=== PATIENT | male | born 1960 | race Caucasian/White ===

== ENCOUNTER 2017-07-21 00:09 | Inpatient (IN) | payer OTHER ==
[2017-07-21] VITALS (16 sets, daily range): BP systolic 118–163; BP diastolic 43–93; PULSE 84–104; RESP 15–34; TEMP 98.3–98.7; O2SAT 92–99
[~2017-07-21] VITALS: Ht 177.8 cm; Wt 112.0 kg
[~2017-07-21 00:09] MED LIST: MELO15TA2 PO; Z.0.NO CURRENT MEDS
[2017-07-21] MEDS ORDERED: IOHEXOL 350 MG/ML 10 ML VIAL (for RAD DIAG) IVCONTRAST ONE (00:10)
[2017-07-21] MEDS ORDERED: SODIUM CHLOR 0.9% 1000 ML INJ 1,000 ML IV SCH (00:17)
[2017-07-21] MEDS ORDERED: DIPHTH/TETANUS/ACEL PERTUSSIS (BOOSTER) 0.5 ML VIAL/PFS IM ONE (00:30)
[2017-07-21] MEDS ORDERED: ONDANSETRON HCL 4 MG/2 ML VIAL IV PUSH ONE (00:30)
[2017-07-21] MEDS ORDERED: SODIUM CHLORIDE 0.9% FLUSH 10 ML FLUSH IVF PRN (00:30)
[2017-07-21] MEDS ORDERED: MORPHINE SULFATE 4 MG/ML INJ IV PUSH ONE (00:30)
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
[2017-07-21 00:55] LABS: AUTOMATED NEUTROPHIL # 5.4 TH/MM3 (1.8-7.7); BASOPHIL # 0.1 TH/MM3 (0-0.2); BASOPHIL % 0.8 % (0.0-2.0); EOSINOPHIL # 0.2 TH/MM3 (0-0.4); EOSINOPHIL % 1.8 % (0.0-4.0); HEMATOCRIT 45.9 % (39.0-51.0); HEMO FLAGS DIFF FINAL; LYMPH % 38.2 % (9.0-44.0); MEAN CELL VOLUME 90.2 FL (80.0-100.0); MEAN CORPUSCULAR HEMOGLOBIN 31.9 PG (27.0-34.0); MEAN CORPUSCULAR HGB CONC 35.4 % (32.0-36.0); MONO % 7.8 % (0.0-8.0); NEUT % 51.4 % (16.0-70.0); PLATELET COUNT 183 TH/MM3 (150-450); RED BLOOD COUNT 5.08 MIL/MM3 (4.50-5.90); RED CELL DISTRIBUTION WIDTH 13.5 % (11.6-17.2); WHITE BLOOD COUNT 10.4 TH/MM3 (4.0-11.0)
[2017-07-21 01:02] LABS: APTT (PATIENT) 22.2 SEC (24.3-30.1); PROTHROMBIN TIME - PATIENT 10.5 SEC (9.8-11.6)
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
[2017-07-21 01:13] LABS: BICARBONATE 22.4 MEQ/L (21.0-32.0); POTASSIUM 3.6 MEQ/L (3.5-5.1)
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
[2017-07-21] MEDS ORDERED: HYDROmorphone HCL PF 0.5 MG/0.5 ML SYRINGE IV PUSH ONE (01:30)
[2017-07-21] MEDS ORDERED: KETOROLAC TROMETHAMINE 30 MG/ML (IVP) VIAL IV PUSH ONE (01:30)
[2017-07-21] MEDS ORDERED: HYDROmorphone HCL PCA 6 MG/30 ML IV SCH (01:45)
[2017-07-21] MEDS ORDERED: NALOXONE HCL 0.4 MG/ML AMP IV PUSH PRN (01:45)
[2017-07-21] MEDS ORDERED: MISCELLANEOUS NURSING INFORMATION XX SCH (01:45)
[2017-07-21] MEDS ORDERED: SENNOSIDES 8.6 MG TAB PO PRN (01:45)
[2017-07-21] MEDS ORDERED: CHLORHEXIDINE GLUCONATE 2 % 1 PACK (2 CLOTHS) TOP PRN (01:45)
[2017-07-21] MEDS ORDERED: BISACODYL 10 MG SUPP RECTAL PRN (01:45)
[2017-07-21] MEDS ORDERED: MAGNESIUM HYDROXIDE SUSP 30 ML CUP PO PRN (01:45)
[2017-07-21] MEDS ORDERED: LACTULOSE SYRUP 20 GM/30 ML CUP PO PRN (01:45)
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
[2017-07-21] MEDS: SODIUM CHLOR 0.9% 1000 ML INJ 1,000 ML IV SCH ×2 (03:00→14:23)
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
[2017-07-21] MEDS: CHLORHEXIDINE GLUCONATE 2 % 1 PACK (2 CLOTHS) TOP SCH (04:00)
[2017-07-21] MEDS: KETOROLAC TROMETHAMINE 30 MG/ML (IVP) VIAL IV PUSH SCH ×3 (04:37→19:37)
[2017-07-21] MEDS: METHOCARBAMOL 500 MG TAB PO SCH ×3 (04:37→23:02)
[2017-07-21] MEDS: PCA - TOTAL MG DILAUDID DELIVERED PER SHIFT OTHER SCH ×2 (05:04→22:00)
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
[2017-07-21] MEDS: DOCUSATE SODIUM 50 MG/SENNA 8.6 MG TAB PO SCH ×2 (09:00→23:02)
[2017-07-21] MEDS: POLYETHYLENE GLYCOL 17 GM PKG PO SCH (09:00)
[2017-07-21] MEDS ORDERED: DOCUSATE SODIUM 50 MG/SENNA 8.6 MG TAB PO SCH (09:00)
[2017-07-21] MEDS ORDERED: MIDAZOLAM HCL 5 MG/ML VIAL (1 ML) IV PUSH ONE (09:45)
[2017-07-21] MEDS ORDERED: fentaNYL CITRATE 250 MCG/5 ML AMP IV PUSH ONE (09:45)
[2017-07-21] MEDS ORDERED: LIDOCAINE HCL 1% 50 ML VIAL INFIL ONE (10:00)
--- NOTE | 2017-07-21 11:02 | RADRPT ---
EXAM DATE/TIME: 07/21/2017 10:15 [facility] COMPARISON: CHEST SINGLE AP, July 21, 2017, 4:59. INDICATIONS : Post chest tube placement. MEDICAL HISTORY : None. SURGICAL HISTORY : None. ENCOUNTER: Subsequent ACUITY: 1 day PAIN SCORE: Non-responsive. LOCATION: Bilateral chest FINDINGS: Interval placement of chest tube in the lower right chest with the tip of the tube projected near the midline. There has been reexpansion of the right lung no residual pneumothorax seen. Displaced fra ctures of the posterior right 3rd and 4th ribs. Patchy areas of opacity in the left infrahilar regio n may represent developing infiltrate. Both hemidiaphragms are well delineated. The heart is stable in size. CONCLUSION: No placement of right lower chest drainage tube with reexpansion of the right lung. Sd Canales MD on July 21, 2017 at 10:59 Board Certified Radiologist. This report was verified electronically.
[2017-07-21] MEDS: RESP: ALBUTEROL 2.5 MG/IPRATROPIUM 0.5 MG NEB (SCH) NEB ×3 (12:33→19:52)
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
--- NOTE | 2017-07-21 12:49 | PD.OP ---
Operative Report Right Pneumothorax Postoperative Diagnosis: Right Pneumothorax Procedure: Right CT thoracostomy Anesthesia: moderate sedation-by Oil Winterizer Surgeon: Rhonda Duron Whale Trainer(s): none Operation and Findings: Right chest was sterilely prepped and draped.A total of 20 cc lidocaine was injected-mid axillary line 5 ICR level.Transverse incision was performed to superior margin of rib with also blunt dissection.At 5 ICR superior margin of rib pleural space entered-large amount of air mccray encountered.CT secured with 0 -silk.CXR shows good position intrapleural-withdrawn for 2 cm towards right chest and resuttured. Rhonda Duron MD Jul 21, 2017 12:49
[2017-07-21] MEDS: MULTIVITAMIN INJ 10 ML, THIAMINE INJ 100 MG, FOLIC ACID INJ 1 MG in SODIUM CHLORID 0.9%... IV SCH (14:13)
[2017-07-21 18:24] LABS: BICARBONATE 22.9 MEQ/L (21.0-32.0); POTASSIUM 4.6 MEQ/L (3.5-5.1)
[2017-07-21] MEDS: REMOVE OLD LIDOCAINE PATCH T-DERMAL SCH (21:00)
[2017-07-22] VITALS (8 sets, daily range): BP systolic 134–171; BP diastolic 67–85; PULSE 75–104; RESP 13–20; TEMP 98–98.6; O2SAT 92–95
[2017-07-22] MEDS: KETOROLAC TROMETHAMINE 30 MG/ML (IVP) VIAL IV PUSH SCH ×5 (00:08→23:53)
[2017-07-22] MEDS: SODIUM CHLOR 0.9% 1000 ML INJ 1,000 ML IV SCH ×2 (01:21→07:48)
[2017-07-22] MEDS: CHLORHEXIDINE GLUCONATE 2 % 1 PACK (2 CLOTHS) TOP SCH (04:00)
[2017-07-22 04:47] LABS: AUTOMATED NEUTROPHIL # 5.8 TH/MM3 (1.8-7.7); BASOPHIL % 0.5 % (0.0-2.0); EOSINOPHIL # 0.1 TH/MM3 (0-0.4); EOSINOPHIL % 1.4 % (0.0-4.0); HEMATOCRIT 38.6 % (39.0-51.0); HEMO FLAGS DIFF FINAL; LYMPH % 19.6 % (9.0-44.0); LYMPHOCYTE # 1.6 TH/MM3 (1.0-4.8); MEAN CELL VOLUME 91.6 FL (80.0-100.0); MEAN CORPUSCULAR HEMOGLOBIN 31.4 PG (27.0-34.0); MEAN CORPUSCULAR HGB CONC 34.3 % (32.0-36.0); MONO % 9.6 % (0.0-8.0); NEUT % 68.9 % (16.0-70.0); PLATELET COUNT 124 TH/MM3 (150-450); RED BLOOD COUNT 4.22 MIL/MM3 (4.50-5.90); RED CELL DISTRIBUTION WIDTH 13.9 % (11.6-17.2); WHITE BLOOD COUNT 8.4 TH/MM3 (4.0-11.0)
[2017-07-22 05:00] LABS: BICARBONATE 23.6 MEQ/L (21.0-32.0); POTASSIUM 4.1 MEQ/L (3.5-5.1)
--- NOTE | 2017-07-22 05:48 | RADRPT ---
EXAM DATE/TIME: 07/22/2017 04:30 [facility] COMPARISON: CHEST SINGLE AP, July 21, 2017, 10:15. INDICATIONS : Short of breath. MEDICAL HISTORY : None. SURGICAL HISTORY : None. ENCOUNTER: Subsequent ACUITY: 2 days PAIN SCORE: 0/10 LOCATION: Bilateral chest FINDINGS: The heart size is normal. There is increased density at the right base. Right rib fractures are seen. There is a mild amount of pleural or extrapleural fluid seen over the right upper lung. Subcutaneous air is seen on the right lateral chest. There is a chest tube at the right base. A pneumothorax is n ot seen. CONCLUSION: 1. Right base atelectasis or contusion. 2. Right rib fractures. 3. Right chest tube without a pneumothorax. Bulmaro Harrison MD on July 22, 2017 at 5:45 Board Certified Radiologist. This report was verified electronically.
[2017-07-22] MEDS: PCA - TOTAL MG DILAUDID DELIVERED PER SHIFT OTHER SCH (06:00)
[2017-07-22] MEDS: METHOCARBAMOL 500 MG TAB PO SCH ×3 (06:27→20:16)
[2017-07-22] MEDS ORDERED: ENOXAPARIN SODIUM 30 MG/0.3 ML SYRINGE SQ SCH (07:00)
[2017-07-22] MEDS: LIDOCAINE HCL 5% PATCH T-DERMAL SCH ×2 (08:23→09:00)
[2017-07-22] MEDS: DOCUSATE SODIUM 50 MG/SENNA 8.6 MG TAB PO SCH ×2 (08:24→20:16)
[2017-07-22] MEDS: POLYETHYLENE GLYCOL 17 GM PKG PO SCH (08:24)
[2017-07-22] MEDS: RESP: ALBUTEROL 2.5 MG/IPRATROPIUM 0.5 MG NEB (SCH) NEB ×2 (08:45→12:36)
[2017-07-22] MEDS: MULTIVITAMIN INJ 10 ML, THIAMINE INJ 100 MG, FOLIC ACID INJ 1 MG in SODIUM CHLORID 0.9%... IV SCH (09:00)
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
[2017-07-22] MEDS ORDERED: ACETAMINOPHEN/HYDROcodone 325 MG/5 MG TAB PO PRN (12:30)
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
[2017-07-22] MEDS: ACETAMINOPHEN/HYDROcodone 325 MG/10 MG TAB PO PRN ×2 (19:01→23:54)
[2017-07-22] MEDS: MORPHINE SULFATE 4 MG/ML INJ IV PUSH PRN (20:15)
[2017-07-22] MEDS: REMOVE OLD LIDOCAINE PATCH T-DERMAL SCH (20:21)
[2017-07-22] MEDS ORDERED: PERI PO (21:07)
[2017-07-22] MEDS ORDERED: MAGN30S PO (21:07)
--- NOTE | 2017-07-22 21:12 | HHI.FF ---
Face to Face Verification Diagnosis: (1) Right rib fracture (2) Pulmonary contusion (3) Pneumothorax Physical Therapy Order: Evaluate and Treat, Improve ambulation, Strength and gait training Home Health Nursing Order: Medical education Signs/symptoms of disease process Medication education-adverse effect Nursing assessment with vital signs I have seen patient Mir Garay on 07/22/17. My clinical findings support the need for the requested home health care services because: Ltd mobility - disease progression Deconditioned w/ increased weakness Limited ability to care for self High risk of falls I certify that my clinical findings support that this patient is homebound because: Post-op weakness Unsteady gait/balance Unsafe to leave home unassisted Unable to use public transportation Claudia Garza Jul 22, 2017 21:12
[2017-07-23] VITALS (12 sets, daily range): BP systolic 123–141; BP diastolic 58–82; PULSE 67–85; RESP 18–22; TEMP 97.7–98.9; O2SAT 92–98
[2017-07-23] MEDS: CHLORHEXIDINE GLUCONATE 2 % 1 PACK (2 CLOTHS) TOP SCH (04:00)
[2017-07-23] MEDS: METHOCARBAMOL 500 MG TAB PO SCH ×3 (05:20→20:47)
[2017-07-23] MEDS: ACETAMINOPHEN/HYDROcodone 325 MG/10 MG TAB PO PRN ×4 (05:20→20:47)
--- NOTE | 2017-07-23 06:31 | RADRPT ---
EXAM DATE/TIME: 07/23/2017 05:42 [facility] COMPARISON: CHEST SINGLE AP, July 21, 2017, 4:59. CHEST SINGLE AP, July 21, 2017, 10:15. CHEST SINGLE A P, July 22, 2017, 4:30. INDICATIONS : Short of breath, evaluate right side pneumothorax and chest tube MEDICAL HISTORY : pneumothorax, right rib fractures, pulmonary contusion SURGICAL HISTORY : right side chest tube ENCOUNTER: Subsequent ACUITY: 4 - 6 days PAIN SCORE: 6/10 LOCATION: Right chest FINDINGS: There is a right-sided chest tube in place. There is a small right pneumothorax seen over the apex me asuring up to 1.5 cm in thickness over the right apex. In retrospect, this appears present on prior c hest x-ray and does not appear significantly changed. There is increased density at the right base. S hift of the heart and mediastinal structures is not seen. There is subcutaneous emphysema seen in the right chest. The left lung is clear. Right rib fractures are present. CONCLUSION: Persistent small pneumothorax at the right apex with a right-sided chest tube. Bulmaro Harrison MD on July 23, 2017 at 6:26 Board Certified Radiologist. This report was verified electronically.
[2017-07-23] MEDS: RESP: ALBUTEROL 2.5 MG/IPRATROPIUM 0.5 MG NEB (SCH) NEB ×4 (08:16→20:00)
[2017-07-23] MEDS: LACTULOSE SYRUP 20 GM/30 ML CUP PO SCH ×2 (09:00→09:36)
[2017-07-23] MEDS: POLYETHYLENE GLYCOL 17 GM PKG PO SCH (09:36)
[2017-07-23] MEDS: DOCUSATE SODIUM 50 MG/SENNA 8.6 MG TAB PO SCH ×2 (09:38→20:47)
[2017-07-23] MEDS: MAGNESIUM HYDROXIDE SUSP 30 ML CUP PO SCH ×2 (09:38→19:00)
[2017-07-23] MEDS: ENOXAPARIN SODIUM 40 MG/0.4 ML SYRINGE SQ SCH (09:40)
[2017-07-23] MEDS: LIDOCAINE HCL 5% PATCH T-DERMAL SCH (09:41)
[2017-07-23] MEDS: MULTIVITAMIN INJ 10 ML, THIAMINE INJ 100 MG, FOLIC ACID INJ 1 MG in SODIUM CHLORID 0.9%... IV SCH (09:55)
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
[2017-07-23] MEDS: MORPHINE SULFATE 4 MG/ML INJ IV PUSH PRN ×2 (14:54→22:07)
[2017-07-23] MEDS: REMOVE OLD LIDOCAINE PATCH T-DERMAL SCH (20:47)
[2017-07-24] VITALS (9 sets, daily range): BP systolic 134–164; BP diastolic 74–91; PULSE 72–85; RESP 18–22; TEMP 97.3–98.3; O2SAT 91–97
[2017-07-24] MEDS: ACETAMINOPHEN/HYDROcodone 325 MG/10 MG TAB PO PRN ×2 (00:41→04:35)
[2017-07-24 04:49] LABS: AUTOMATED NEUTROPHIL # 4.6 TH/MM3 (1.8-7.7); BASOPHIL % 0.5 % (0.0-2.0); EOSINOPHIL # 0.2 TH/MM3 (0-0.4); EOSINOPHIL % 3.1 % (0.0-4.0); HEMATOCRIT 35.7 % (39.0-51.0); HEMO FLAGS DIFF FINAL; LYMPH % 22.2 % (9.0-44.0); LYMPHOCYTE # 1.6 TH/MM3 (1.0-4.8); MEAN CELL VOLUME 90.4 FL (80.0-100.0); MEAN CORPUSCULAR HGB CONC 34.2 % (32.0-36.0); MONO % 7.5 % (0.0-8.0); NEUT % 66.7 % (16.0-70.0); PLATELET COUNT 133 TH/MM3 (150-450); RED BLOOD COUNT 3.95 MIL/MM3 (4.50-5.90); RED CELL DISTRIBUTION WIDTH 14.1 % (11.6-17.2)
[2017-07-24 05:11] LABS: BICARBONATE 27.3 MEQ/L (21.0-32.0); POTASSIUM 4.2 MEQ/L (3.5-5.1)
[2017-07-24] MEDS: METHOCARBAMOL 500 MG TAB PO SCH ×3 (06:16→20:24)
[2017-07-24] MEDS: MAGNESIUM HYDROXIDE SUSP 30 ML CUP PO SCH ×2 (06:16→20:20)
--- NOTE | 2017-07-24 06:59 | RADRPT ---
EXAM DATE/TIME: 07/24/2017 06:09 [facility] COMPARISON: CHEST SINGLE AP, July 23, 2017, 5:42. INDICATIONS : Chest pain. Short of breath. Right side pneumothorax. MEDICAL HISTORY : None. SURGICAL HISTORY : None. ENCOUNTER: Initial ACUITY: 1 day PAIN SCORE: 6/10 LOCATION: Right chest FINDINGS: There is a right-sided chest tube in place. A significant pneumothorax is not seen. There some mild s uspected atelectasis at the right lung base. Multiple right rib fractures are seen. There is subcutan eous emphysema seen at the right lateral chest. Left lung is clear. The heart size is normal. CONCLUSION: Right chest tube without a significant pneumothorax seen. Bulmaro Harrison MD on July 24, 2017 at 6:56 Board Certified Radiologist. This report was verified electronically.
[2017-07-24] MEDS: RESP: ALBUTEROL 2.5 MG/IPRATROPIUM 0.5 MG NEB (SCH) NEB ×2 (08:52→10:51)
[2017-07-24] MEDS: DOCUSATE SODIUM 50 MG/SENNA 8.6 MG TAB PO SCH ×2 (09:09→20:16)
[2017-07-24] MEDS: POLYETHYLENE GLYCOL 17 GM PKG PO SCH (09:09)
[2017-07-24] MEDS: ENOXAPARIN SODIUM 40 MG/0.4 ML SYRINGE SQ SCH (09:09)
[2017-07-24] MEDS: LACTULOSE SYRUP 20 GM/30 ML CUP PO SCH (09:10)
[2017-07-24] MEDS: LIDOCAINE HCL 5% PATCH T-DERMAL SCH (09:11)
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
[2017-07-24] MEDS ORDERED: oxyCODONE/ACETAMINOPHEN 5 MG/325 MG TAB PO PRN (12:45)
[2017-07-24] MEDS: MORPHINE SULFATE 4 MG/ML INJ IV PUSH PRN (13:01)
[2017-07-24] MEDS: KETOROLAC TROMETHAMINE 30 MG/ML (IVP) VIAL IV PUSH SCH ×3 (15:02→23:40)
[2017-07-24] MEDS: oxyCODONE/ACETAMINOPHEN 10 MG/325 MG TAB PO PRN (20:20)
[2017-07-24] MEDS: REMOVE OLD LIDOCAINE PATCH T-DERMAL SCH (20:21)
[2017-07-25] VITALS (12 sets, daily range): BP systolic 149–192; BP diastolic 63–94; PULSE 71–97; RESP 18–20; TEMP 97.8–98.6; O2SAT 90–96
[2017-07-25] MEDS: oxyCODONE/ACETAMINOPHEN 10 MG/325 MG TAB PO PRN ×5 (01:32→21:36)
[2017-07-25] MEDS: METHOCARBAMOL 500 MG TAB PO SCH ×3 (06:04→21:36)
[2017-07-25] MEDS: KETOROLAC TROMETHAMINE 30 MG/ML (IVP) VIAL IV PUSH SCH ×4 (06:06→23:59)
[2017-07-25] MEDS: MAGNESIUM HYDROXIDE SUSP 30 ML CUP PO SCH ×2 (06:06→16:30)
[2017-07-25] MEDS: MORPHINE SULFATE 4 MG/ML INJ IV PUSH PRN (06:51)
--- NOTE | 2017-07-25 07:21 | RADRPT ---
EXAM DATE/TIME: 07/25/2017 06:37 [facility] COMPARISON: CHEST SINGLE AP, July 24, 2017, 6:09. INDICATIONS : Chest pain, short of breath, evaluate right side pneumothorax and chest tube MEDICAL HISTORY : rib fractures, pneumothorax, pulmonary contusion SURGICAL HISTORY : chest tube ENCOUNTER: Subsequent ACUITY: 4 - 6 days PAIN SCORE: 6/10 LOCATION: Right chest FINDINGS: There is a tiny right apical pneumothorax measuring 10 mm. Multiple fractures of the right upper rib cage are stable. Right-sided chest tube is stable. Minimal subcutaneous emphysema is noted within the right chest wall. Right basilar atelectasis is noted. The heart is stable. CONCLUSION: 1. Tiny right apical pneumothorax measuring 10 mm. 2. Stable basilar atelectasis. 3. Minimal subcutaneous emphysema within the right chest wall. 4. Stable right sided rib fractures. Raheem Lara MD on July 25, 2017 at 7:16 Board Certified Radiologist. This report was verified electronically.
[2017-07-25] MEDS: BISACODYL EC 5 MG TABEC PO ONE ×2 (07:30→08:55)
[2017-07-25] MEDS: BISACODYL 10 MG SUPP RECTAL ONE ×2 (07:30→09:00)
[2017-07-25] MEDS: LACTULOSE SYRUP 20 GM/30 ML CUP PO SCH ×2 (08:55→09:00)
[2017-07-25] MEDS: DOCUSATE SODIUM 50 MG/SENNA 8.6 MG TAB PO SCH ×3 (08:55→21:00)
[2017-07-25] MEDS: ENOXAPARIN SODIUM 40 MG/0.4 ML SYRINGE SQ SCH (08:57)
[2017-07-25] MEDS: LIDOCAINE HCL 5% PATCH T-DERMAL SCH (08:58)
[2017-07-25] MEDS: RESP: ALBUTEROL 2.5 MG/IPRATROPIUM 0.5 MG NEB (SCH) NEB ×4 (08:59→21:44)
[2017-07-25] MEDS: POLYETHYLENE GLYCOL 17 GM PKG PO SCH ×2 (09:00→09:02)
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
[2017-07-25] MEDS: REMOVE OLD LIDOCAINE PATCH T-DERMAL SCH (21:00)
[2017-07-26] VITALS (14 sets, daily range): BP systolic 134–182; BP diastolic 64–88; PULSE 76–90; RESP 18–20; TEMP 97.9–99.2; O2SAT 91–96
[2017-07-26] MEDS: MAGNESIUM HYDROXIDE SUSP 30 ML CUP PO SCH ×2 (04:21→16:43)
[2017-07-26] MEDS: METHOCARBAMOL 500 MG TAB PO SCH ×3 (06:19→20:31)
[2017-07-26] MEDS: KETOROLAC TROMETHAMINE 30 MG/ML (IVP) VIAL IV PUSH SCH ×4 (06:19→23:27)
[2017-07-26] MEDS: oxyCODONE/ACETAMINOPHEN 10 MG/325 MG TAB PO PRN ×3 (06:19→20:31)
[2017-07-26] MEDS: POLYETHYLENE GLYCOL 17 GM PKG PO SCH (07:26)
[2017-07-26] MEDS: LACTULOSE SYRUP 20 GM/30 ML CUP PO SCH (07:26)
[2017-07-26] MEDS: DOCUSATE SODIUM 50 MG/SENNA 8.6 MG TAB PO SCH ×2 (07:27→20:31)
[2017-07-26] MEDS: ENOXAPARIN SODIUM 40 MG/0.4 ML SYRINGE SQ SCH (07:28)
[2017-07-26] MEDS: LIDOCAINE HCL 5% PATCH T-DERMAL SCH (07:28)
--- NOTE | 2017-07-26 07:33 | RADRPT ---
EXAM DATE/TIME: 07/26/2017 06:08 [facility] COMPARISON: CHEST SINGLE AP, July 25, 2017, 6:37. INDICATIONS : Short of breath, pain right side and chest, evaluate right pneumothorax and chest tube MEDICAL HISTORY : rib fractures, pneumothorax, pulmonary contusion SURGICAL HISTORY : chest tube ENCOUNTER: Subsequent ACUITY: 1 week PAIN SCORE: 6/10 LOCATION: Right chest FINDINGS: AP portable upright view of the chest demonstrates interval decreased size of a right apical pneumoth orax which is now measuring approximately 3 mm in size as measured from the right lung apex. Stable a ppearance of right-sided pulmonary contusion. Right basilar chest tube and soft tissue emphysema invo lving the right hemithorax. The heart size appears normal. The left lung is clear. Multiple mildly di splaced right-sided rib fractures are present. CONCLUSION: Interval decrease in size of a right apical pneumothorax. Sosa Giraldo MD on July 26, 2017 at 7:29 Board Certified Radiologist. This report was verified electronically.
[2017-07-26] MEDS: MORPHINE SULFATE 4 MG/ML INJ IV PUSH PRN ×3 (07:34→23:27)
[2017-07-26] MEDS: RESP: ALBUTEROL 2.5 MG/IPRATROPIUM 0.5 MG NEB (SCH) NEB ×4 (08:41→18:57)
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
[2017-07-26] MEDS: REMOVE OLD LIDOCAINE PATCH T-DERMAL SCH (20:31)
[2017-07-27] VITALS (9 sets, daily range): BP systolic 121–150; BP diastolic 73–80; PULSE 80–93; RESP 18; TEMP 97.9–99.2; O2SAT 91–93
[2017-07-27] MEDS: oxyCODONE/ACETAMINOPHEN 10 MG/325 MG TAB PO PRN ×3 (02:18→22:11)
[2017-07-27] MEDS: METHOCARBAMOL 500 MG TAB PO SCH ×3 (05:03→22:11)
[2017-07-27] MEDS: KETOROLAC TROMETHAMINE 30 MG/ML (IVP) VIAL IV PUSH SCH ×4 (05:03→17:06)
[2017-07-27] MEDS: MORPHINE SULFATE 4 MG/ML INJ IV PUSH PRN ×4 (05:04→23:06)
[2017-07-27 05:19] LABS: AUTOMATED NEUTROPHIL # 4.3 TH/MM3 (1.8-7.7); BASOPHIL % 0.3 % (0.0-2.0); EOSINOPHIL # 0.3 TH/MM3 (0-0.4); EOSINOPHIL % 4.5 % (0.0-4.0); HEMATOCRIT 36.5 % (39.0-51.0); HEMO FLAGS DIFF FINAL; LYMPHOCYTE # 1.3 TH/MM3 (1.0-4.8); MEAN CELL VOLUME 91.5 FL (80.0-100.0); MEAN CORPUSCULAR HEMOGLOBIN 31.2 PG (27.0-34.0); MEAN CORPUSCULAR HGB CONC 34.1 % (32.0-36.0); MONO % 10.4 % (0.0-8.0); NEUT % 64.8 % (16.0-70.0); PLATELET COUNT 151 TH/MM3 (150-450); RED BLOOD COUNT 3.99 MIL/MM3 (4.50-5.90); RED CELL DISTRIBUTION WIDTH 13.7 % (11.6-17.2); WHITE BLOOD COUNT 6.6 TH/MM3 (4.0-11.0)
[2017-07-27 05:29] LABS: ALT (GPT) 94 U/L (12-78); ANION GAP 6 MEQ/L (5-15); AST (GOT) 54 U/L (15-37); BICARBONATE 26.7 MEQ/L (21.0-32.0); BLOOD UREA NITROGEN 17 MG/DL (7-18); CHLORIDE 104 MEQ/L (98-107); GLOMERULAR FILTRATION RATE 89 ML/MIN (>89); SODIUM (NA) 137 MEQ/L (136-145)
[2017-07-27 05:31] LABS: ALKALINE PHOSPHATASE 60 U/L (45-117); TOTAL BILIRUBIN ADULT 1.5 MG/DL (0.2-1.0)
--- NOTE | 2017-07-27 06:24 | RADRPT ---
EXAM DATE/TIME: 07/27/2017 05:12 [facility] COMPARISON: CHEST SINGLE AP, July 26, 2017, 6:08. INDICATIONS : Evaluate for pneumothorax MEDICAL HISTORY : Rib fractures, Pulmonary Contusion SURGICAL HISTORY : None. ENCOUNTER: Subsequent ACUITY: 1 week PAIN SCORE: 7/10 LOCATION: Bilateral chest FINDINGS: Portable AP view of the chest demonstrates a normal-sized cardiac silhouette. Lungs are underinflated and there is chest tube at the inferior right hemithorax. No definite right pneumothorax is seen. Th ere is right chest wall subcutaneous air. Left lung demonstrates no acute finding. CONCLUSION: Right chest tube remains present and no definite pneumothorax is seen. There is persistent right ches t wall subcutaneous air. Bulmaro Manzano MD on July 27, 2017 at 6:21 Board Certified Radiologist. This report was verified electronically.
[2017-07-27] MEDS: MAGNESIUM HYDROXIDE SUSP 30 ML CUP PO SCH ×2 (06:47→18:32)
[2017-07-27] MEDS: LACTULOSE SYRUP 20 GM/30 ML CUP PO SCH (07:41)
[2017-07-27] MEDS: POLYETHYLENE GLYCOL 17 GM PKG PO SCH (07:42)
[2017-07-27] MEDS: DOCUSATE SODIUM 50 MG/SENNA 8.6 MG TAB PO SCH ×2 (07:42→21:00)
[2017-07-27] MEDS: ENOXAPARIN SODIUM 40 MG/0.4 ML SYRINGE SQ SCH (07:42)
[2017-07-27] MEDS: LIDOCAINE HCL 5% PATCH T-DERMAL SCH (07:43)
[2017-07-27] MEDS: RESP: ALBUTEROL 2.5 MG/IPRATROPIUM 0.5 MG NEB (SCH) NEB ×4 (08:40→22:42)
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
[2017-07-27] MEDS ORDERED: fentaNYL 50 MCG/HR PATCH T-DERMAL SCH (11:30)
[2017-07-27] MEDS: fentaNYL 50 MCG/HR PATCH T-DERMAL SCH (12:40)
[2017-07-27] MEDS: REMOVE OLD LIDOCAINE PATCH T-DERMAL SCH (21:00)
[2017-07-28] VITALS (10 sets, daily range): BP systolic 127–143; BP diastolic 70–81; PULSE 75–107; RESP 18; TEMP 97.8–98.6; O2SAT 91–95
[2017-07-28] MEDS: oxyCODONE/ACETAMINOPHEN 10 MG/325 MG TAB PO PRN ×2 (04:52→08:29)
--- NOTE | 2017-07-28 05:51 | RADRPT ---
EXAM DATE/TIME: 07/28/2017 04:51 [facility] COMPARISON: CHEST SINGLE AP, July 26, 2017, 6:08. CHEST SINGLE AP, July 27, 2017, 5:12. INDICATIONS : Short of breath, pain right at chest tube site. MEDICAL HISTORY : Rib fractures, Pulmonary Contusion SURGICAL HISTORY : None. ENCOUNTER: Subsequent ACUITY: 1 week PAIN SCORE: 10/10 LOCATION: Right chest FINDINGS: Portable AP view of the chest demonstrates a normal-sized cardiac silhouette. There is mild atelectas is at the lung bases with a right pleural-based opacity. Right chest tube is present at the inferior hemithorax. There is a small right apical pneumothorax. Multiple right rib fractures are present and there is right chest wall subcutaneous air. CONCLUSION: 1. Right chest tube remains present and there is a small right apical pneumothorax. 2. Stable right basilar pleural-parenchymal opacity. Mild right rib fractures remain visualized. Bulmaro Manzano MD on July 28, 2017 at 5:49 Board Certified Radiologist. This report was verified electronically.
[2017-07-28] MEDS: METHOCARBAMOL 500 MG TAB PO SCH ×3 (06:26→22:45)
[2017-07-28] MEDS: KETOROLAC TROMETHAMINE 30 MG/ML (IVP) VIAL IV PUSH SCH ×4 (06:26→18:00)
[2017-07-28] MEDS: MAGNESIUM HYDROXIDE SUSP 30 ML CUP PO SCH ×2 (06:27→18:02)
[2017-07-28] MEDS: fentaNYL 50 MCG/HR PATCH T-DERMAL SCH (06:36)
[2017-07-28] MEDS: DOCUSATE SODIUM 50 MG/SENNA 8.6 MG TAB PO SCH ×2 (08:27→21:00)
[2017-07-28] MEDS: POLYETHYLENE GLYCOL 17 GM PKG PO SCH (08:27)
[2017-07-28] MEDS: ENOXAPARIN SODIUM 40 MG/0.4 ML SYRINGE SQ SCH (08:27)
[2017-07-28] MEDS: LIDOCAINE HCL 5% PATCH T-DERMAL SCH (08:28)
[2017-07-28] MEDS: LACTULOSE SYRUP 20 GM/30 ML CUP PO SCH (08:28)
[2017-07-28] MEDS: RESP: ALBUTEROL 2.5 MG/IPRATROPIUM 0.5 MG NEB (SCH) NEB ×2 (08:43→12:00)
[2017-07-28] MEDS ORDERED: LIDO1ADH4 T-DERMAL (11:47)
[2017-07-28] MEDS ORDERED: OXYC1TAB63 PO (11:47)
[2017-07-28] MEDS ORDERED: METH500T3 PO (11:47)
[2017-07-28] MEDS: MORPHINE SULFATE 4 MG/ML INJ IV PUSH PRN (13:06)
[2017-07-28] MEDS ORDERED: ALPRAZolam 0.25 MG TAB PO ONE (13:30)
--- NOTE | 2017-07-28 14:28 | RADRPT ---
EXAM DATE/TIME: 07/28/2017 13:58 [facility] COMPARISON: CHEST SINGLE AP, July 28, 2017, 4:51. INDICATIONS : Post right side chest tube removal. MEDICAL HISTORY : Rib fractures, Pulmonary Contusion SURGICAL HISTORY : None. ENCOUNTER: Initial ACUITY: 1 day PAIN SCORE: 10/10 LOCATION: Right chest FINDINGS: Interval removal of right-sided inferior chest tube. Very subtle stable right apical pneumothorax. St able right chest wall soft tissue emphysema. Remainder of the exam is unchanged. CONCLUSION: 1. Status post right chest tube removal with stable trace right apical pneumothorax. 2. Otherwise, no significant interval change. Dylon Thomas MD on July 28, 2017 at 14:25 Board Certified Radiologist. This report was verified electronically.
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
[2017-07-28] MEDS: REMOVE OLD LIDOCAINE PATCH T-DERMAL SCH (22:46)
[2017-07-29] VITALS: BP 125/61; PULSE 90; PULSE 95; RESP 18; TEMP 98.3; O2SAT 95
[2017-07-29 00:21] VITALS: O2SAT 93
[2017-07-29] MEDS: KETOROLAC TROMETHAMINE 30 MG/ML (IVP) VIAL IV PUSH SCH ×2 (00:47→05:37)
[2017-07-29 04:00] VITALS: BP 139/81; PULSE 85; RESP 18; TEMP 98.9; O2SAT 92
[2017-07-29] MEDS: METHOCARBAMOL 500 MG TAB PO SCH (05:37)
[2017-07-29] MEDS: MAGNESIUM HYDROXIDE SUSP 30 ML CUP PO SCH (05:54)
--- NOTE | 2017-07-29 06:59 | RADRPT ---
EXAM DATE/TIME: 07/29/2017 05:56 [facility] COMPARISON: CHEST SINGLE AP, July 28, 2017, 13:58. INDICATIONS : Chest pain, cough, congestion, follow up chest tube removal from right side MEDICAL HISTORY : pneumothorax, pulmonary contusion SURGICAL HISTORY : chest tube ENCOUNTER: Subsequent ACUITY: 1 week PAIN SCORE: 7/10 LOCATION: Right chest FINDINGS: A single AP portable erect view of the chest was obtained and again demonstrates multiple right rib f ractures. There is no visualized pneumothorax. There is consolidative opacity remaining at the right lung base with blunting of the right costophrenic angle. Subcutaneous emphysema remains over the righ t lateral chest wall. The heart size remains within normal limits. There is mild streaky opacity at t he left lung base. CONCLUSION: 1. Multiple right rib fractures again visualized with subcutaneous emphysema and no visualized pneumo thorax. 2. Consolidative opacity remains at the right lung base as well as a small right effusion. Neal Clifton MD on July 29, 2017 at 6:56 Board Certified Radiologist. This report was verified electronically.
[2017-07-29 07:45] VITALS: O2SAT 94
[2017-07-29 08:00] VITALS: BP 125/73; PULSE 86; RESP 19; TEMP 97.8; O2SAT 93
[2017-07-29] MEDS: POLYETHYLENE GLYCOL 17 GM PKG PO SCH (08:58)
[2017-07-29] MEDS: LACTULOSE SYRUP 20 GM/30 ML CUP PO SCH (08:58)
[2017-07-29] MEDS: DOCUSATE SODIUM 50 MG/SENNA 8.6 MG TAB PO SCH (08:58)
[2017-07-29] MEDS: LIDOCAINE HCL 5% PATCH T-DERMAL SCH (09:01)
[2017-07-29] MEDS: ENOXAPARIN SODIUM 40 MG/0.4 ML SYRINGE SQ SCH (09:02)
[2017-07-29] MEDS: oxyCODONE/ACETAMINOPHEN 10 MG/325 MG TAB PO PRN (09:24)
[2017-07-29] MEDS ORDERED: ALBU6.7H INH (11:01)
[2017-07-29 12:00] VITALS: BP 137/82; PULSE 92; RESP 17; TEMP 97.5; O2SAT 93
[2017-07-29] MEDS ORDERED: OXYC1TAB36 PO (12:46)
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
[2017-07-30] MEDS ORDERED: REMOVE OLD DURAGESIC (FENTANYL) PATCH T-DERMAL SCH (12:00)
== END 2017-07-29 15:14 | disposition home or self-care (01) | DRG 183 ==
LOC: NEPE 00:09 → NEDA 01:22 → N03B 03:06 → N05B 07-22 14:35
PROVIDERS: ADMIT Surgery Trauma Surgery; ATTEND Surgery Trauma Surgery
PROC: 0W9930Z Drainage of Right Pleural Cavity with Drainage Device, Percutaneous Approach (ICD-10-PCS; principal; 2017-07-22)
DX: S22.41XA Multiple fractures of ribs, right side, initial encounter for closed fracture (principal); S27.2XXA Traumatic hemopneumothorax, initial encounter; S27.322A Contusion of lung, bilateral, initial encounter; T79.7XXA Traumatic subcutaneous emphysema, initial encounter; J94.8 Other specified pleural conditions; J95.812 Postprocedural air leak; M48.54XA Collapsed vertebra, not elsewhere classified, thoracic region, initial encounter for fracture; K76.0 Fatty (change of) liver, not elsewhere classified; F10.20 Alcohol dependence, uncomplicated; F12.90 Cannabis use, unspecified, uncomplicated; V28.4XXA Motorcycle driver injured in noncollision transport accident in traffic accident, initial encounter; Y90.6 Blood alcohol level of 120-199 mg/100 ml; Y92.410 Unspecified street and highway as the place of occurrence of the external cause; Z68.35 Body mass index [BMI] 35.0-35.9, adult; Z87.891 Personal history of nicotine dependence
CPT/HCPCS: 70450; 70486; 71010; 71260; 72125; 72128; 72131; 74177; 76937; 80048; 80053; 80307; 85025; 85610; 85730; 86850; 86900; 86901; 87641; 90471; 90715; 94150; 94620; 94640; 94664; 94667; 94668; 96374; 96375; J1170; J1650; J1885; J2250; J2270; J2405; J3010; J3411; J7030; J7040; Q9967